=== PATIENT | female | born 1985 | race Caucasian/White ===

== ENCOUNTER 2017-04-06 18:06 | Emergency (ER) | payer OTHER ==
[2017-04-06 18:22] VITALS: BP 128/96
--- NOTE | 2017-04-06 18:41 | UC ---
Skin Complaint HPI - HPI Summary HPI Summary: Pt presents with sore to suprapubic area. She works in a [employer] and is very concerned that she has MRSA. One of the residents has MRSA and pt has had recurring sores on his suprapubic area for weeks - she started reading online and is very worried these sores are MRSA. She tells me that they have come intermittently over the last few months, sometimes they will drain "pus". She admits that she does not "take care of herself" and does not come to the doctor when she thinks she needs to because she is busy with family and work. Denies fever, chills, or recent illness. - History of Current Complaint Chief Complaint: UCGeneralIllness Time Seen by Provider: 04/06/17 18:26 Stated Complaint: PRIVATE ISSUE Hx Obtained From: Patient Current Severity: None Pain Intensity: 0 Pain Scale Used: 0-10 Numeric - Allergy/Home Medications Allergies/Adverse Reactions: Allergies Allergy/AdvReac Type Severity Reaction Status Date / Time No Known Allergies Allergy Verified 04/06/17 18:22 Review of Systems Constitutional: Negative Skin: Other - Sores to suprapubic area Respiratory: Negative Cardiovascular: Negative Gastrointestinal: Negative Genitourinary: Negative Neurological: Negative Psychological: Negative All Other Systems Reviewed And Are Negative: Yes PMH/Surg Hx/FS Hx/Imm Hx Previously Healthy: Yes - Surgical History Surgical History: None - Family History Known Family History: Positive: Diabetes - Social History Occupation: Employed Full-time Lives: With Family Alcohol Use: None Substance Use Type: None Smoking Status (MU): Never Smoked Tobacco Physical Exam Triage Information Reviewed: Yes Appearance: Well-Appearing, No Pain Distress, Obese Vital Signs: Initial Vital Signs Temp 97.1 F 04/06/17 18:20 Pulse 93 04/06/17 18:20 Resp 20 04/06/17 18:20 BP 128/96 04/06/17 18:20 Pulse Ox 99 04/06/17 18:20 Vital Signs Reviewed: Yes Neck: Positive: Supple, Nontender, No Lymphadenopathy Respiratory: Positive: Lungs clear, Normal breath sounds, No respiratory distress, No accessory muscle use Cardiovascular: Positive: RRR, No Murmur, Pulses Normal Neurological: Positive: Alert Psychological: Positive: Age Appropriate Behavior Skin: Positive: Other - Two <3mm in diameters areas of erythema at the suprapubic area at the bases of hair follicles. NTTP. No bleeding, discharge, edema, or ulceration. Course/Dx - Course Course Of Treatment: Folliculitis suprapubic area. I took a culture of the wound , but it is not currently draining and the sample is less than ideal. - Diagnoses Provider Diagnoses: Folliculitis Discharge - Discharge Plan Condition: Stable Disposition: HOME Prescriptions: Cephalexin CAP* [Keflex CAP*] 500 mg PO BID #14 cap Patient Education Materials: Folliculitis (ED), Abscess (ED) Referrals: Fernanda Araiza MD [Primary Care Provider] - Additional Instructions: If you develop a fever, shortness of breath, chest pain, new or worsening symptoms - please call your PCP or go to the ED. Your blood pressure was high at todays visit. Please see your primary provider within 4 weeks for recheck and re-evaluation.
== END 2017-04-06 18:50 | disposition home or self-care (01) ==
LOC: UCEAST 18:06
DX: L73.9 Follicular disorder, unspecified (principal); E66.9 Obesity, unspecified
CPT/HCPCS: 87070; 87077; 87186; 87205; 87640; 87641; 99202; G0463

== ENCOUNTER 2018-02-02 15:57 | Emergency (ER) | payer OTHER ==
[2018-02-02 16:12] VITALS: BP 123/76
--- NOTE | 2018-02-02 16:40 | UC ---
Lower Extremity/Ankle HPI - HPI Summary HPI Summary: 32-year-old woman comes to clinic today with a chief complaint of right foot and ankle pain. She's had this pain on and off for months. Increasing activity seems to start a flareup. Pain is on the dorsum in the lateral aspect of the foot and the lateral ankle. Pain is worse with movement. Better with rest. There has been some swelling. Ibuprofen helps some. No specific injury noted. No fevers no skin break no rash. Pain is worse by the end of the day. - History of Current Complaint Chief Complaint: UCLowerExtremity Stated Complaint: FOOT PAIN AND SWELLING Time Seen by Provider: 02/02/18 16:26 Hx Last Menstrual Period: unknown Pain Intensity: 9 - Allergies/Home Medications Allergies/Adverse Reactions: Allergies Allergy/AdvReac Type Severity Reaction Status Date / Time No Known Allergies Allergy Verified 02/02/18 16:15 Home Medications: Home Medications Ibuprofen TAB* [Motrin TAB* 600 MG] 400 mg PO Q6H PRN 02/02/18 [History Confirmed 02/02/18] ValACYclovir (*) [Valtrex 500 mg (*)] 500 mg PO DAILY PRN 02/02/18 [History Confirmed 02/02/18] PMH/Surg Hx/FS Hx/Imm Hx Previously Healthy: Yes - Surgical History Surgical History: None - Family History Known Family History: Positive: Diabetes - Social History Alcohol Use: Weekly Substance Use Type: None Smoking Status (MU): Never Smoked Tobacco Review of Systems All Other Systems Reviewed And Are Negative: Yes Constitutional: Positive: Negative Skin: Positive: Negative Eyes: Positive: Negative ENT: Positive: Negative Respiratory: Positive: Negative Cardiovascular: Positive: Negative Gastrointestinal: Positive: Negative Motor: Positive: Negative Neurovascular: Positive: Negative Musculoskeletal: Positive: Other: - SEE HPI Neurological: Positive: Negative Psychological: Positive: Negative Is Patient Immunocompromised?: No Physical Exam Triage Information Reviewed: Yes Appearance: Well-Appearing, No Pain Distress, Well-Nourished Vital Signs: Initial Vital Signs Temp 97.4 F 02/02/18 16:03 Pulse 90 02/02/18 16:03 Resp 16 02/02/18 16:03 BP 123/76 02/02/18 16:03 Pulse Ox 97 02/02/18 16:03 Vital Signs Reviewed: Yes Eye Exam: Normal Eyes: Positive: Conjunctiva Clear Neck exam: Normal Neck: Positive: Supple Respiratory: Positive: No respiratory distress Musculoskeletal: Positive: Other: - Patient is tender just distal to the right ankle lateral malleolus. She is also tender on the lateral aspect of the midfoot. Achilles tendon is intact and nontender. The plantar surface is nontender to palpation. Normal capillary refill normal pulses no sensation deficit. The toes and distal metatarsals are nontender to palpation. Neurological Exam: Normal Neurological: Positive: Alert, Muscle Tone Normal Psychological Exam: Normal Psychological: Positive: Age Appropriate Behavior Skin Exam: Normal Lower Extremity Course/Dx - Course Course Of Treatment: Order Information: FOOT RIGHT 3+ VWS. Accession Number: [id number]. CPT: 92488. INDICATION: Dorsal lateral ankle pain times several months. COMPARISON: None. TECHNIQUE: 4 views of the right ankle and 3 views of the right foot were obtained. FINDINGS: The bones are normal alignment. Joint spaces appear maintained. No fracture is. seen. An enthesophyte is noted at the origin of the plantar fascia on the calcaneal. tubercle. IMPRESSION: NO RADIOGRAPHICALLY APPARENT ACUTE ABNORMALITY OF THE RIGHT FOOT AND ANKLE. If the patient's symptoms persist, follow-up imaging is recommended. . <Electronically signed by Marek Mary MD in [place]> 02/02/18 0478. Order Information: ANKLE RIGHT 3+VWS. Accession Number: [id number]. CPT: 90467. INDICATION: Dorsal lateral ankle pain times several months. COMPARISON: None. TECHNIQUE: 4 views of the right ankle and 3 views of the right foot were obtained. FINDINGS: The bones are normal alignment. Joint spaces appear maintained. No fracture is. seen. An enthesophyte is noted at the origin of the plantar fascia on the calcaneal. tubercle. IMPRESSION: NO RADIOGRAPHICALLY APPARENT ACUTE ABNORMALITY OF THE RIGHT FOOT AND ANKLE. If the patient's symptoms persist, follow-up imaging is recommended. . < Electronically signed by Marek Mary MD in [place]> 02/02/18 [id number]. I discussed the x-ray results with the patient. The plan is an Griffin wrap and gel splint eyes anti-inflammatories. Arthritis and overuse injury and I'm recommending follow- up with orthopedics so that she can be further evaluated and more of a long- term solution. - Differential Dx/Diagnosis Provider Diagnosis: Right ankle sprain, Right foot sprain Discharge - Sign-Out/Discharge Documenting (check all that apply): Patient Departure All imaging exams completed and their final reports reviewed: Yes - Discharge Plan Condition: Stable Disposition: HOME Patient Education Materials: Ankle Sprain (ED), Foot Sprain (ED) Referrals: Fernanda Araiza MD [Primary Care Provider] - Michael Leal MD [Medical Doctor] - Additional Instructions: FOLLOW UP WITH ORTHOPEDICS. TAKE IBUPROFEN 600MG THREE TIMES A DAY. ICE, ELEVATE AND REST YOUR RIGHT FOOT AND ANKLE. GET RECHECKED FOR ANY WORSENING OF YOUR CONDITION OR QUESTIONS OR CONCERNS. - Billing Disposition and Condition Condition: STABLE Disposition: Home
== END 2018-02-02 17:35 | disposition home or self-care (01) ==
LOC: UCEAST 15:57
DX: S93.401A Sprain of unspecified ligament of right ankle, initial encounter (principal); S93.601A Unspecified sprain of right foot, initial encounter; X58.XXXA Exposure to other specified factors, initial encounter; Y92.9 Unspecified place or not applicable
CPT/HCPCS: 99213; G0463